=== PATIENT | male | born 1960 | race Caucasian/White ===

== ENCOUNTER 2016-07-23 09:54 | Day surgery (SDC) | payer OTHER ==
[2016-07-18 12:51] VITALS: BMI 42.4
[~2016-07-23 09:54] MED LIST: LACTATED RINGERS 1,000 ML IV SCH; LIDOCAINE 1% 20 ML VIAL (10MG/ML) FOR IV START INTRADERMA PRN
[2016-07-23 10:16] VITALS: TEMP 98.1
[2016-07-23] MEDS ORDERED: MIDAZOLAM 2 MG/2 ML VIAL ONE (10:55)
[2016-07-23] MEDS ORDERED: PROPOFOL 10 MG/ML 20 ML VIAL IV ONE (10:55)
--- NOTE | 2016-07-23 11:27 | P.PCN ---
Date of Procedure: 07/23/16 Procedure(s) Performed: Procedure: Total colonoscopy and polypectomy. Preoperative diagnosis: 1. Sigmoid polyp snared but no large polyps or cancer. 2. Mild sigmoid diverticulosis with no evidence of acute diverticulitis or strictures. Preparation: HalfLytely prep. Sedation: Was provided by anesthesia. Brief clinical history: The patient is a 55-year-old male who is referred for this evaluation for screening for neoplasia age being his risk factor. He has no abdominal complaints, bleeding or anemia. No family history of colon cancer. This would be his first colonoscopy. Procedure: With the patient on his left lateral decubitus position and after informed consent and adequate sedation, the perianal area was inspected and it did not show any fissures or fistulas. There were no masses felt on digital rectal examination. The Olympus CFQ 160L video colonoscope was then inserted in the rectum in the usual fashion and advanced to the cecum. There was a small polyp in the sigmoid around 50 cm from the anal verge which was snared and retrieved by suction. There was occasional small diverticular orifices scattered in the sigmoid with no evidence of acute diverticulitis or strictures. The exam to the cecum, otherwise, was within normal limits. I retroflexed endoscope in the rectum before the endoscope was withdrawn. The patient tolerated the procedure well. Plan: The patient was reassured. Discussed dietary measures. He will follow up with you as planned and I recommended repeat exam in 5 years.
[2016-07-23 11:36] VITALS: RESP 16
[2016-07-23 11:48] VITALS: BP 118/72; PULSE 58
== END 2016-07-23 11:56 | disposition home or self-care (01) ==
LOC: ORWHC2ENDO 09:54
DX: Z12.11 Encounter for screening for malignant neoplasm of colon (principal); D12.5 Benign neoplasm of sigmoid colon; K57.30 Diverticulosis of large intestine without perforation or abscess without bleeding; F17.200 Nicotine dependence, unspecified, uncomplicated; M19.90 Unspecified osteoarthritis, unspecified site
CPT/HCPCS: 88305; 45385; J2250; J2704

== ENCOUNTER → 2016-07-30 | Outpatient (CLI) | payer OTHER ==
--- NOTE | 2016-07-30 12:13 | ECHOS ---
DATE OF SERVICE: 07/30/2016 AGE: 55Y SEX: M HT: 67" WT: 275 lbs. Protocol Denny: X Others: Stress Echo Stage: 3 Dur. of Exercise: 7:00 *Heart Rate Blood Pressure *Rest: 67 Rest: 124/59 * *Max. Achieved: 142 Maximum BP: 198/64 85% PMHR: 140 100% PMHR: 165 *METS: 8.3 INDICATIONS: Family history of heart disease. MEDICATIONS: Aleve, aspirin, fish oil. Baseline EKG shows sinus rhythm, normal axis, normal intervals. Patient exercised on Denny protocol for a total of 7 minutes, achieving 8 METs, 86% of predicted maximal heart rate without chest pain. At peak exercise, there was 0.[address] segment depression noted. CONCLUSION: 1. Average exercise tolerance. 2. Nondiagnostic EKG changes with exercise.
== END | disposition home or self-care (01) ==
LOC: RADNMMAIN 09:45
PROVIDERS: ATTEND Family Medicine
DX: Z82.41 Family history of sudden cardiac death (principal); E66.9 Obesity, unspecified; Z87.891 Personal history of nicotine dependence; Z79.82 Long term (current) use of aspirin
CPT/HCPCS: 93350; 93017; Q9957

== ENCOUNTER → 2020-08-25 | Outpatient (CLI) | payer OTHER ==
[2020-08-25 16:07] LABS: HCT 47.9 % (39.0-53.0); HGB 16.1 gm/dL (13.0-17.5); MCH 31.8 pg (25.0-35.0); MCHC 33.7 g/dL (31.0-37.0); MCV 94.5 fL (80.0-100.0); Mean Platelet Volume 6.8; Platelet Count 286 k/uL (150-450); RBC 5.07 m/uL (4.30-5.90); RDW 12.7 % (11.5-15.5)
[2020-08-25 16:16] LABS: Albumin 4.5 g/dL (3.5-5.0); Calcium 10.5 mg/dL (8.4-10.2); Potassium 4.8 mmol/L (3.5-5.1); Total Bilirubin 0.4 mg/dL (0.2-1.3); Total Protein 7.7 g/dL (6.3-8.2)
[2020-08-25 16:20] LABS: INR 0.9 (<1.2); Partial Thromboplastin Time 23.1 sec (22.0-30.0); Prothrombin Time 9.7 sec (9.0-12.0)
[2020-08-25 19:52] LABS: Appearance,Urine Clear (Clear); Bilirubin,Urine Negative (Negative); Blood,Urine Negative (Negative); Color,Urine Yellow; Glucose,Urine (UA) Negative (Negative); Ketones,Urine Negative (Negative); Leukocyte Esterase,Urine Negative (Negative); Mucus,Urine Rare /hpf; Nitrite,Urine Negative (Negative); PH, Urine 5.5 (5.0-8.0); Protein,Urine 1+ (Negative); RBC,Urine <1 /hpf (0-5); Specific Gravity,Urine 1.025 (1.001-1.035); Urobilinogen,Urine <2.0 mg/dL (<2.0); WBC,Urine 1 /hpf (0-5)
== END | disposition home or self-care (01) ==
LOC: LABPAT 15:25
PROVIDERS: ATTEND Orthopaedic Surgery Sports Medicine
DX: Z01.812 Encounter for preprocedural laboratory examination (principal)
CPT/HCPCS: 36415; 80053; 81001; 85027; 85610; 85730; 87070; 93005

== ENCOUNTER 2020-09-08 07:43 | Day surgery (SDC) | payer OTHER ==
[2020-09-05 15:29] VITALS: BMI 40.1
[~2020-09-08 07:43] MED LIST changes: +ACETAMINOPHEN TAB 500 MG TAB PO PRN; +DEXAMETHASONE SOD PHOSPHATE 4 MG/ML 1 ML VIAL IV ONE; +GABAPENTIN 300 MG CAP PO PRN; +HYDROmorphone 0.5 MG/0.5 ML SYRINGE IVP PRN; -LACTATED RINGERS 1,000 ML IV SCH; -LIDOCAINE 1% 20 ML VIAL (10MG/ML) FOR IV START INTRADERMA PRN; +MELOXICAM 7.5 MG TAB PO PRN; +MIDAZOLAM 2 MG/2 ML VIAL IV PRN; +ONDANSETRON 4 MG/2 ML VIAL IVP ONE; +ONDANSETRON 4 MG/2 ML VIAL IVP PRN; +ROPIVACAINE/EPI/CLONIDINE/KET 50 ML SYRINGE MISCELLANE PRN; +TRANEXAMIC ACID 1,000 MG in SODIUM CHLORIDE 0.9% 100 ML IVPB PRN
[2020-09-08] MEDS: LACTATED RINGERS 1,000 ML IV SCH ×3 (08:20→19:12)
[2020-09-08] MEDS ORDERED: LIDOCAINE 1% (10MG/ML) FOR IV START INTRADERMA ONE (08:20)
[2020-09-08] MEDS ORDERED: bisacodyL 10 MG SUPP RECTAL PRN (09:02)
[2020-09-08] MEDS ORDERED: HYDROcodone/APAP 10-325MG 1 EACH TAB PO PRN (09:02)
[2020-09-08] MEDS ORDERED: hydrOXYzine pamoate 25 MG CAP PO PRN (09:02)
[2020-09-08] MEDS ORDERED: HYDROmorphone 1 MG/ML 1 ML SYRINGE IVP PRN (09:02)
[2020-09-08] MEDS ORDERED: MAGNESIUM HYDROXIDE 2,400 MG/10 ML CUP PO PRN (09:02)
[2020-09-08] MEDS ORDERED: ONDANSETRON 4 MG/2 ML VIAL IVP PRN (09:02)
[2020-09-08] MEDS ORDERED: HYDROcodone/APAP 5-325MG 1 EACH TAB PO PRN (09:02)
[2020-09-08] MEDS ORDERED: ACETAMINOPHEN TAB 325 MG TAB PO PRN (09:02)
[2020-09-08] MEDS ORDERED: diazePAM 5 MG TAB PO PRN (09:02)
[2020-09-08] MEDS ORDERED: TEMAZEPAM 15 MG CAP PO PRN (09:02)
[2020-09-08] MEDS ORDERED: HYDROmorphone 0.5 MG/0.5 ML SYRINGE IVP PRN (09:02)
[2020-09-08] MEDS ORDERED: NA PHOS,M-B/NA PHOS,DI-BA 133 ML ENEMA RECTAL PRN (09:02)
[2020-09-08] MEDS ORDERED: HYDROmorphone 0.2 MG/1 ML SYRINGE IVP PRN (09:02)
[2020-09-08] MEDS ORDERED: NALOXONE 0.4 MG/ML 1 ML VIAL IV PRN (09:02)
[2020-09-08] MEDS ORDERED: traMADol 50 MG TAB PO PRN (09:02)
[2020-09-08] MEDS ORDERED: ROPIVACAINE 0.2%-NS ON-Q PUMP 1,090 MG, EMPTY PAIN BALL 1 EACH MISCELLANE PRN (09:15)
[2020-09-08] MEDS ORDERED: SODIUM CHLORIDE 0.9% 100 ML BAG ONE (09:16)
[2020-09-08] MEDS ORDERED: fentaNYL (PF) 50 MCG/ML 2 ML AMP ONE (09:16)
[2020-09-08] MEDS ORDERED: diphenhydrAMINE 50 MG/ML 1 ML VIAL ONE (09:16)
[2020-09-08] MEDS ORDERED: TRANEXAMIC ACID 1,000 MG/10 ML VIAL ONE (09:16)
[2020-09-08] MEDS ORDERED: MIDAZOLAM 2 MG/2 ML VIAL ONE (09:16)
[2020-09-08] MEDS ORDERED: PROPOFOL 10 MG/ML 20 ML VIAL IV ONE (09:16)
[2020-09-08] MEDS ORDERED: KETAMINE 10 MG/ML 20 ML VIAL ONE (09:16)
[2020-09-08] MEDS ORDERED: ROPIVACAINE 5 MG/ML 30 ML VIAL ONE (09:16)
--- NOTE | 2020-09-08 09:16 | P.ANPRN ---
Procedure Note - Anesthesia - Nerve Block Performed Right Adductor Canal Infusion Time Out Performed: Yes Date of Procedure: 09/08/20 Procedure Start Time: 08:32 Procedure Stop Time: 08:41 Location of Patient: PreOp Indication: Acute Post-Operative Pain, Requested by Surgeon Sedation Type: Sedate with meaningful contact maintained Preparation: Sterile Prep, Sterile Dressing Position: Supine Catheter: Indwelling Needle Types: Pajunk Needle Gauge: 21 Ultrasound used to visualize needle placement: Yes Ultrasound used to observe medication spread: Yes Blood Aspirated: No Pain Paresthesia on Injection Noted: No Resistance on Injection: Normal Image Stored and Saved: Yes Events: Uneventful and Well Tolerated (ropi .5% 20cc plus dexamethasone 4mg)
--- NOTE | 2020-09-08 09:18 | P.ANPRN ---
Procedure Note - Anesthesia - Nerve Block Performed Right Tommyck Single Time Out Performed: Yes Date of Procedure: 09/08/20 Procedure Start Time: 08:48 Procedure Stop Time: 08:57 Location of Patient: PreOp Indication: Acute Post-Operative Pain, Requested by Surgeon Sedation Type: Sedate with meaningful contact maintained Preparation: Sterile Prep Position: Supine Needle Types: Pajunk Needle Gauge: 21 Ultrasound used to visualize needle placement: Yes Ultrasound used to observe medication spread: Yes Blood Aspirated: No Pain Paresthesia on Injection Noted: No Resistance on Injection: Normal Image Stored and Saved: Yes Events: Uneventful and Well Tolerated (ropi .5% 20cc)
[2020-09-08] MEDS ORDERED: ceFAZolin 3,000 MG in SODIUM CHLORIDE 0.9% IRRIGATIO 3,000 ML IRRIGATION ONE (09:49)
[2020-09-08] MEDS ORDERED: LACTATED RINGERS 1,000 ML IV ONE (11:00)
--- NOTE | 2020-09-08 12:15 | XR ---
Limited right knee HISTORY: Status post right knee arthroplasty 2 views of the right knee Patient is status post right knee arthroplasty. There is anatomic alignment. Lucency is present in th e soft tissues. Small ossific densities are present posterior to the knee which may be related to syn ovial osteochondromatosis, soft tissue calcifications may be related to venous stasis disease. There are overlying artifacts. IMPRESSION: Orthopedic follow-up.
[2020-09-08 12:30] VITALS: RESP 16
[2020-09-08] MEDS ORDERED: ALPRAZolam 0.25 MG TAB PO PRN (18:35)
--- NOTE | 2020-09-08 18:59 | OP ---
OPERATIVE REPORT DATE OF PROCEDURE: 09/08/2020. SURGEON: Bg Bhakta MD. LENS GRINDER AND POLISHER: Rony BARROSO. PREOPERATIVE DIAGNOSIS: Right knee osteoarthrosis. POSTOPERATIVE DIAGNOSIS: Right knee osteoarthrosis. OPERATION PERFORMED: Right total knee arthroplasty. ANESTHESIA: Spinal with sedation. ESTIMATED BLOOD LOSS: 100 mL. TOURNIQUET: Tourniquet time was 62 minutes at 250 mmHg. COMPLICATIONS: None apparent. DRAINS: None. DISPOSITION: Postanesthesia care unit. INDICATIONS: Clay Ordonez is a 59-year-old male with longstanding history of right knee pain. History and physical examination are consistent with advanced right knee osteoarthrosis. He has been through significant nonoperative management up to this point. Further treatment options were discussed and he has decided to go forward with a right total knee arthroplasty. The risks of procedure were discussed with him in detail. These risks include, but are not limited to risk of infection, nerve damage, bleeding, pain, and a small risk of deep vein thrombosis which could lead to fatal pulmonary embolism. There is also risk of loosening of the implant which could require revision operation. The patient understands these risks. All the questions were answered to his satisfaction. Appropriate informed consent was obtained. DESCRIPTION OF PROCEDURE: The patient identified in the preoperative holding area. Surgical sites marked by both the patient and myself. He was given 2 grams of Ancef IV for prophylactic purposes. He was then transferred to the operative suite. He was placed supine on the operative table. Spinal anesthetic was then administered and dosed per the anesthesia without apparent complication. Examination under anesthesia was then performed. The patient was 5-7 degrees shy of full extension. He had 95 degrees of flexion. The medial collateral ligament, lateral collateral ligament and posterior cruciate ligaments were stable. Tourniquet was then placed high on the right upper thigh well-padded in preparation for surgery. The patient's right lower extremity was then prepped and draped in usual sterile fashion. Standard surgical pause undertaken to ensure that we were operating on the correct site and that appropriate preoperative antibiotics were given. All staff in the room were in agreement. We proceeded. The outlines of the patella were marked with a surgical pen. A planned 12 cm vertical incision centered over the patella and was marked with a surgical pen. Leg was then exsanguinated with an Esmarch dressing. The knee was then flexed and tourniquet was inflated to 250 mm mmHg. The total tourniquet time for the procedure was 62 minutes. Incision was then made with a 10 blade scalpel. Dissection was carried down sharply overlying fascia. Great care was taken to minimize the skin flaps. The knee was then exposed using a standard medial parapatellar approach. A small cuff of quadriceps tendon was then left for suturing. He was in quite a bit of varus preoperatively. A standard medial release was then made. The superficial medial collateral ligament was dissected off the bone around the posterior aspect of the proximal tibia. The medial meniscus was then excised as well. The lateral meniscus was also released anteriorly. The leg was then externally rotated. The patella was everted. The knee was flexed. The retractors were then placed to protect the collateral ligaments. I then proceeded to remove the infrapatellar fat pad. This was excised sharply tangentially with the fibers of the patellar tendon. I then proceeded to remove the peripheral osteophytes. This was done with a rongeur. I then proceeded with the distal femoral resection. He did have a flexion contracture. Planned 11 mm resection was then done. The femoral canal was then entered. The mid line of the femur approximately 10 mm anterior to the origin of the posterior cruciate ligament. The oliverio was then advanced down the center of the femur and placed intramedullary. Based on the preoperative radiographs, the angle between the anatomic and mechanical axis of the femur was approximately 4-5 degrees. The valgus angle of the distal femoral cutting guide was then set at 4 degrees for the right knee. The distal femoral cutting guide was then set, was advanced over the intramedullary oliverio. This was seated firmly against the femur. Then as mentioned planned to take 11 mm off the distal femur. The cutting block was then secured onto the femur with pins. The jig was then removed. The distal femoral cut was made through the slot of the block. The pins were then removed. The distal femoral cutting block was removed. The accuracy of the distal femoral cuts was checked with 2 flat bars. I then proceeded with femoral sizing. The posterior referencing sizing guide was held firmly against the resected distal surface of the femur. The posterior condyles were resting on the posterior plane of the guide. Sizing guide was then placed on the anterior femur. The size was measured as a size 10. I then assessed for femoral rotation. Plan was for 3 degrees external rotation. Three degrees external rotation was placed onto the jig. These holes were then marked. I then confirmed the rotation by 3 separate methods. This was done using epicondylar axis as well as Whitesides line and posterior referencing. It was deemed that the external rotation was proper. I then went forward placing the femoral cutting block. This was placed over the previously placed pin holes. The Brent wing was then placed on the anterior slots to ensure that we would not notch the anterior femur with the anterior femoral cut. I then proceeded with the anterior femoral cut. This was flush with the anterior cortex of the femur. The posterior cuts were then made followed by the anterior chamfer cut, then the posterior chamfer cut. The cutting block was then removed for throughout the resection the collateral ligaments were protected with retractors. I then placed a trial size 10 femur. It fit very nice medial-lateral and fit flush with the distal end of the femur. The drill holes were then made. I then proceeded with the tibial cut. I planned for cruciate retaining knee. The guide was placed and set for varus valgus and for slope. The height was set for approximate 2 mm resection from the medial tibial plateau which was the lower side. I was happy with the alignment and amount of resection. The cutting block was then pinned to the proximal tibia. The alignment oliverio was removed. The proximal tibia was resected with a reciprocating saw. Again, this was done with retractors protecting the collateral ligaments as well as the posterior cruciate ligament. I then proceeded to evaluate the flexion extension gaps. A 10 mm block was then placed. The flexion and extension gaps were equal. I then proceeded with resection of posterior osteophytes. He had very extensive posterior osteophytes as well as posterior loose bodies. This was done with a curved osteotome. This resected the posterior osteophytes and posterior capsule stripping was done off the posterior aspect of the femur at this time. The osteophytes were then removed. I then proceeded with resection of the patella. The thickness of the patella was measured using the caliper. The thickness was 26 mm. The thickness of the anticipated patellar dome was taken into account. Resection was then performed and confirmed to be equal in 4 quadrants using a caliper. Approximately 14 mm of bone remained after resection. A 32 x 8.5 mm standard patellar trial was then placed. The holes drilled. The trial was then placed. I then proceeded with sizing tibial plate. A size F tibial plate fit very nicely. I then placed the trial femur, the tibial tray and patellar button. A 10 mm trial tibial insert was also placed. The components fit very nicely. He had full extension and flexion. The extension and flexion gaps were equal and stable to both varus and valgus stress. The patella tracked appropriately. The tibial tray rotation was then marked with a Bovie. This was externally rotated properly. I then proceeded with tibial preparation. First we drilled the femoral holes, removed femoral component. The tibial tray was then set for proper external rotation as well as mediolateral placement onto the tibia. It was then pinned into place. I then proceeded with punching the keel. I then decided to proceed with cementing of all of our components. The knee was thoroughly irrigated with sterile saline solution via pulse lavage. The lateral geniculate artery was identified and cauterized. All blood was removed from the bone of the tibia, femur and patella with pulse lavage. I then proceed with cementing. Two packs of antibiotic bone cement prepared on the back table by the surgical elastic knitter. I then proceeded with cementing the tibia first. The cement was impacted into the keel as well as deeply seated in the bone. A second coat of cement was then placed. The tibia was then impacted into place. Excess cement was removed with [place]'s and Joker's. I then proceeded with cementing the femoral component. The femoral component was also cemented using sterile technique. Excess cement was removed. A 10 mm trial insert was then placed into the knee. It was brought in full extension with a constant axial load placed until the cement had hardened. The patellar component was then cemented. This was held firmly with a compressive device until the cement had dried. When the cement had dried, the knee was taken out of extension. All excess cement was removed from around the prosthesis. I then trialed the knee with a 10 mm insert. The flexion and extension gaps were appropriate. The knee was stable. It came in full extension. I decided to go forward with a 10 mm cross-linked cruciate-retaining tibial insert. Polyethylene was then placed on the tibial tray and locked into place. The knee was then reduced. The knee was again further irrigated with sterile saline solution with antibiotic added. The tourniquet was then deflated. Total tourniquet time for the procedure was 62 minutes at 250 mmHg. Final components were Edmond Persona size 10 cruciate-retaining femoral component, size F tibial tray, a 10 mm medial congruent cruciate-retaining polyethylene insert and a 32 x 8.5 mm patella. I then proceeded with closure. Again, the knee was thoroughly irrigated. The quadriceps tendon and the medial retinaculum were reapproximated with #2 Ethibond suture. The extensor mechanism was then closed with a running #2 Quill suture. Subcutaneous tissues were closed with 2-0 Vicryl interrupted suture. The skin was closed with a running 3-0 Quill suture. Dermabond was applied to the incision. Sterile compressive dressings were applied. All sponge and needle counts were deemed correct prior to closure. The patient tolerated the procedure without apparent complication. He was transferred to the recovery room in stable condition. MMODL / IJN: [id number] /
[2020-09-08] MEDS: ASPIRIN 81 MG PO SCH (20:58)
[2020-09-08] MEDS ORDERED: SENNOSIDES-DOCUSATE SODIUM 1 EACH TAB PO SCH (21:00)
--- NOTE | 2020-09-08 22:12 | CONS ---
CONSULTATION REASON FOR CONSULTATION: Advice regarding history of DJD and other medical issues, requested by Dr. Bhakta. HISTORY OF PRESENT ILLNESS: This 59-year-old gentleman with past medical history of DJD, history of adenoidectomy, appendectomy, history of tonsillectomy, being followed Dr. Alexi George in the outpatient setting, underwent right total knee arthroplasty by Dr. Bhakta. There is no history of any fever, rigor or chills. No history of headache, loss of consciousness, seizures at this time. PAST MEDICAL HISTORY: History of DJD, history of adenoidectomy, appendectomy, tonsillectomy. HOME MEDICATIONS: 1. CBD. 2. Multivitamins. 3. Aspirin 81 mg daily. ALLERGIES: NONE. FAMILY HISTORY: No history of heart disease or strokes in the family. SOCIAL HISTORY: History of smoking. Occasional alcohol intake. REVIEW OF SYSTEMS: ENT: No diminished hearing. No diminished vision. CARDIOVASCULAR SYSTEM: No angina, palpitations. RESPIRATORY SYSTEM: No cough, hemoptysis. GI: No nausea, vomiting. : No dysuria or retention. NERVOUS SYSTEM: No numbness, weakness. ALLERGY/IMMUNOLOGY: No asthma, hayfever. MUSCULOSKELETAL: As mentioned earlier. HEMATOLOGY/ONCOLOGY: No history of anemia. ENDOCRINE: No history of diabetes, hypothyroidism. CONSTITUTIONAL: As mentioned earlier. DERMATOLOGY: Negative. RHEUMATOLOGY: Negative. PSYCHIATRY: As mentioned earlier. PHYSICAL EXAMINATION: Patient alert and oriented x3. Pulse 55, blood pressure 148/92, respirations 16, temperature 97.7, pulse ox 96% on room air. HEENT: Conjunctivae normal. NECK: No jugular venous distention. CARDIOVASCULAR SYSTEM: S1, S2 muffled. RESPIRATORY SYSTEM: Breath sounds diminished at the bases. No rhonchi. No crackles. ABDOMEN: Soft, non-tender. NERVOUS SYSTEM: No focal deficit. LEGS: Status post knee arthroplasty. NERVOUS SYSTEM: Higher functions as mentioned earlier. Moves all 4 limbs. No focal motor or sensory deficit. LYMPHATICS: No lymph node palpable in neck, axillae or groin. SKIN: No ulcer, rash, bleeding. JOINTS: As mentioned earlier. LABS: COVID-19 is negative. On the previous labs, WBC was 11. Otherwise, coags are normal. Chemistry also shows within normal limits. Random sugar was apparently 101. ASSESSMENT: 1. Status post right total knee joint arthroplasty. 2. Degenerative joint disease. 3. History of nicotine dependence. 4. Appendectomy. 5. Tonsillectomy. 6. Obesity with body mass index of 40.2. 7. FULL CODE. RECOMMENDATIONS AND DISCUSSION: In this 59-year-old gentleman who presented with multiple medical issues, we will monitor the patient closely, continue the current medications, continue symptomatic treatment. DVT prophylaxis. Otherwise, I would recommend Habitrol, smoking cessation. Closely follow with Dr. George after discharge. We will follow the patient closely with you. Thank you, Dr. Bhakta, for letting us participate in the care of this patient. MMODL / IJN: [id number] /
[2020-09-09] MEDS: NICOTINE 14MG/24HR PATCH TRANSDERM SCH ×2 (04:45→08:18)
[2020-09-09] MEDS: LACTATED RINGERS 1,000 ML IV SCH (05:12)
[2020-09-09 05:53] LABS: Basophils % (A) 0 %; Eosinophils % (A) 0 %; HCT 41.9 % (39.0-53.0); HGB 14.4 gm/dL (13.0-17.5); Lymphocytes # (A) 1.9 k/uL (1.0-4.8); Lymphocytes % (A) 13 %; MCH 32.5 pg (25.0-35.0); MCHC 34.3 g/dL (31.0-37.0); MCV 94.6 fL (80.0-100.0); Mean Platelet Volume 6.9; Monocytes % (A) 7 %; Neutrophils # (A) 12.1 k/uL (1.3-7.7); Neutrophils % (A) 80 %; Platelet Count 293 k/uL (150-450); RBC 4.43 m/uL (4.30-5.90); RDW 12.5 % (11.5-15.5); WBC 15.2 k/uL (3.8-10.6)
[2020-09-09 07:12] VITALS: BP 166/94; PULSE 65; TEMP 98.6
--- NOTE | 2020-09-09 07:46 | P.PN ---
Progress Note - Text 09/09/20 718am 59-year-old male status post total knee replacement by Dr. Bhakta. Hasn't On-Q pump for postop pain control with the solution running at 8 mL an hour with a VAS of 3 at rest dressing clean dry and intact. Plan to continue On-Q pump infusion
[2020-09-09] MEDS: ASPIRIN 81 MG PO SCH (08:21)
[2020-09-09] MEDS ORDERED: ASPIRIN 81 MG PO SCH (09:00)
[2020-09-09] MEDS ORDERED: amLODIPine 5 MG TAB PO SCH (11:00)
[2020-09-09] MEDS ORDERED: MULTIVITAMINS, THERA 1 EACH TAB PO SCH (12:00)
--- NOTE | 2020-09-09 14:50 | P.DS ---
Providers Expected date of discharge: 09/09/20 Attending physician: Bg Bhakta Consults: 09/08/20 09:02 Consult Physician Routine Consulting Provider: Yajaira Saravia Consult Reason/Comments: post op medical management Do you want consulting provider notified?: Yes Primary care physician: Alexi George - Discharge Diagnosis(es) (1) Osteoarthritis of right knee Patient was admitted to the OR on 09/08/20 to undergo a right total knee arthroplasty. He had failed conservative measures as an outpatient and desired to proceed with elective surgery after given informed consent. He underwent the above procedure which she tolerated well without complication. Postoperative hospital course has remained without complication. On day of discharge she is afebrile, vital signs stable, labs within acceptable ranges, tolerating by mouth meds and diet, voiding without difficulty, positive flatus, denies abdominal pain or calf pain, pain is controlled on oral pain medication and has no new complaints. Wound is benign, neurovascular status is intact, calf is soft and nontender, abdomen soft and nontender. Review of systems is negative for numbness, tingling, fever, chills, chest pain, shortness of breath, nausea, vomiting, dizziness, headaches, slurred speech or other. Status: Acute Priority: Medium Procedures: Right TKA Patient Condition at Discharge: Good Plan - Discharge Summary Discharge Rx Participant: No New Discharge Prescriptions: New Aspirin [Adult Low Dose Aspirin EC] 81 mg PO BID #60 tablet. HYDROcodone/APAP 7.5-325MG [Flint 7.5-325] 1 - 2 each PO Q6HR PRN #42 tab PRN Reason: Pain Nicotine 14Mg/24Hr Patch [Habitrol] 1 patch TRANSDERM DAILY #20 patch amLODIPine [Norvasc] 5 mg PO DAILY 30 Days #30 tab Acetaminophen Tab [Tylenol] 650 mg PO Q4HR PRN tab PRN Reason: Pain Scale 1 To 5 Docusate [Colace] 100 mg PO BID #60 capsule Continue Aspirin [Adult Low Dose Aspirin EC] 81 mg PO DAILY Multivitamins, Thera [Multivitamin (formulary)] 1 tab PO DAILY Cannabidiol (Cbd) [Epidiolex] 0 mg TOPICAL DAILY PRN PRN Reason: Pain Discharge Medication List Aspirin [Adult Low Dose Aspirin EC] 81 mg PO DAILY 07/18/16 [History] Multivitamins, Thera [Multivitamin (formulary)] 1 tab PO DAILY 07/18/16 [History] Cannabidiol (Cbd) [Epidiolex] 0 mg TOPICAL DAILY PRN 09/05/20 [History] Acetaminophen Tab [Tylenol] 650 mg PO Q4HR PRN tab 09/09/20 [Rx] Aspirin [Adult Low Dose Aspirin EC] 81 mg PO BID #60 tablet. 09/09/20 [Rx] Docusate [Colace] 100 mg PO BID #60 capsule 09/09/20 [Rx] HYDROcodone/APAP 7.5-325MG [Flint 7.5-325] 1 - 2 each PO Q6HR PRN #42 tab 09/09/20 [Rx] Nicotine 14Mg/24Hr Patch [Habitrol] 1 patch TRANSDERM DAILY #20 patch 09/09/20 [Rx] amLODIPine [Norvasc] 5 mg PO DAILY 30 Days #30 tab 09/09/20 [Rx] Follow up Appointment(s)/Referral(s): [facility], [NON-STAFF] - 1 Week Bg Bhakta MD [STAFF PHYSICIAN] - 10 Days Patient Instructions/Handouts: *Surgery [facility] - On-Q Pain Pump Discharge Instructions, Knee Replacement (GEN) Activity/Diet/Wound Care/Special Instructions: Keep wound clean and dry Take meds as directed Follow-up with Dr. Bhakta in office Weight bear as tolerated May shower in 3 days if no bleeding Continue with Norvasc 5 mg daily and follow-up with primary care provider upon discharge Continue to monitor blood pressure and keep a diary for primary care follow-up Discharge Disposition: HOME WITH HOME HEALTH SERVICES
--- NOTE | 2020-09-09 20:55 | PN ---
PROGRESS NOTE DATE OF SERVICE: 09/09/2020 This 59-year-old gentleman admitted after right total knee arthroplasty is improving significantly. No chest pain. No palpitations. No fever. PHYSICAL EXAMINATION: Alert and oriented x3. Pulse is 65, blood pressure 160/94, respirations 16, temperature 98.6, pulse ox 97% on room air. HEENT: Conjunctivae normal. NECK: No jugular venous distention. CARDIOVASCULAR SYSTEM: S1, S2 muffled. RESPIRATORY SYSTEM: Breath sounds diminished at the bases. ABDOMEN: Soft, non-tender. LEGS: Status post knee arthroplasty. NERVOUS SYSTEM: No focal deficit. LABS: WBC 15.2. Other labs are noted. ASSESSMENT: 1. Status post right total knee arthroplasty. 2. Hypertension. 3. Degenerative joint disease. 4. History of nicotine dependence. 5. Appendectomy. 6. Tonsillectomy. 7. Obesity body mass index of 40.9. 8. FULL CODE. RECOMMENDATIONS AND DISCUSSION: I recommend to continue current medications, continue with the monitoring, symptomatic treatment. I recommend Norvasc 5 mg p.o. daily and close followup with primary physician in the outpatient setting regarding the blood pressure. Otherwise, rest of the recommendations per Orthopedic Surgery. Further recommendations to follow. MMODL / IJN: [id number] /
== END 2020-09-09 12:20 | disposition home health service (06) ==
LOC: OR 07:43 → 5NMEDONC 13:24 → OR 09-09 12:20
PROVIDERS: ATTEND Orthopaedic Surgery Sports Medicine
DX: M17.0 Bilateral primary osteoarthritis of knee (principal); H91.90 Unspecified hearing loss, unspecified ear; Z97.3 Presence of spectacles and contact lenses; Z90.89 Acquired absence of other organs; Z79.82 Long term (current) use of aspirin; F17.210 Nicotine dependence, cigarettes, uncomplicated
CPT/HCPCS: 27447; 97110; 97161; 64999; 64448; 76942; 85025; 88300; 87635; 73560; C1776; C1713; J2250; J1200; J1100; J0690 ×2; J2405; J3010; J2795 ×2; J2704

== ENCOUNTER → 2021-09-27 | Outpatient (CLI) | payer BC ==
--- NOTE | 2021-09-27 12:09 | CA ---
Exercise Stress Test Report Name: Clay Ordonez Exam Date: 09/27/2021 09:02 Exam Location: [facility] Stress Ht (in): 68 Wt (lb): 274 BSA: 2.34 Ordering Phys: Alexi George MD Referring Phys: ROBERT, Technologist: Kiley Nj Age: 60 Gender: M : 1960 Procedure CPT: Indications: R94.31 ABNORMAL EKG ICD-10 Codes: Patient History: ABNORMAL EKG Medications: ASPIRIN Meds past 24 hrs: Pretest Chest Pain: STRESS TEST Denny Protocol Exercise Duration (min:sec): 09:[address] Depressions (mm): Angina Score: Sifuentes Score: Resting HR (bpm): 65 Peak HR (bpm): 149 Resting BP (mmHg): 146 / 72 Peak BP (mmHg): 211 / 73 MPHR: 160 Target HR: 136 % MPHR: 93 METS: 10.3 Total Dose: Peak Dose: Atropine: Double Product: 81296 BP Response: Stress Termination: TARGET HR REACHED/MAX EXERTION Stress Symptoms: DIFFICULTY IN BREATHING Stress Summary: ECG ANALYSIS Resting ECG: Normal sinus rhythm normal axis normal intervals Stress ECG: No significant ST segment depression CONCLUSIONS Good exercise tolerance Negative stress test by EKG criteria Dr. Champ Gramajo MD (Electronically Signed) Final Date: 27 Sep 2021 12:08
== END | disposition home or self-care (01) ==
LOC: RADNMMAIN 08:30
PROVIDERS: ATTEND Pediatrics
DX: R94.31 Abnormal electrocardiogram [ECG] [EKG] (principal)
CPT/HCPCS: 93017

== ENCOUNTER 2022-12-14 10:45 | Day surgery (SDC) | payer BC ==
[2022-12-10 15:43] VITALS: BMI 38.0
--- NOTE | 2022-12-13 20:34 | HP ---
HISTORY AND PHYSICAL CHIEF COMPLAINT: Fluid in the right ear. HISTORY OF PRESENT ILLNESS: The patient is a 62-year-old male who was recently seen in my office with complaints of plugged sensation in the right ear. The patient stated that when he talked it sounded as if he has his head stuck in a bucket. Clinical examination at the time the patient was seen in my office revealed chronic right serous otitis media so called glue ear. The patient was tried on a course of oral dexamethasone for 10 days. He returned approximately 2 weeks later and stated that it was not any better. Clinical examination here reveals he still had chronic right serous otitis media, so called glue ear. It was therefore recommended that he undergo a right myringotomy with insertion of ventilation tube under IV sedation. PAST MEDICAL HISTORY: Reveals the patient has no known allergies to medications. His only current medication is a low dose blood pressure medication, he does not know the name. Previous surgeries include appendectomy, tonsillectomy and adenoidectomy, right knee replacement, and colonoscopy. REVIEW OF SYSTEMS: Review of systems is positive with respect to the cardiovascular system for hypertension. Otherwise, the review of systems is unremarkable. PHYSICAL EXAMINATION: GENERAL: The patient is a 62-year-old male who was alert and cooperative. HEENT: The patient is normocephalic. Left ear is unremarkable. Examination of right ear reveals chronic right serous otitis media. Pupils equal, round, and reactive to light and accommodation. Extraocular movements within normal limits. Intranasal examination reveals moderate to severe septal deviation with compensatory hypertrophy of the inferior turbinates and moderate amount of mucus on the mucous membranes and draining down the posterior pharynx. Cranial nerves II through XII, remainder of the head and neck exam were within normal limits. CHEST AND CARDIOVASCULAR: Lung quinones are clear. The patient in regular sinus rhythm. S1 and S2 are present without any murmurs, S3s, or S4s. Peripheral pulses are bilaterally symmetrical. ABDOMEN: There is no evidence any masses, megaly, or tenderness. The abdomen is soft. SKIN: Unremarkable. MUSCULOSKELETAL AND NEUROLOGICAL: Within normal limits. RECTAL: Deferred at this time because the patient has done on a regular basis at his family physician's office. The remainder of physical exam is unremarkable. IMPRESSION: Chronic right serous otitis media. PLAN: The patient is scheduled to undergo a right myringotomy with insertion of a ventilation tube under IV sedation with MAC. Attention RNs: I have ordered for this patient to receive 3 g of Ancef IV to be given once an intravenous line has been established. If the pharmacy department sends a different pre-surgical prophylactic antibiotic to the pre-surgical area for this patient, please cancel that order and return the medication to the pharmacy department. Make sure that the patient's account is credited appropriately. In addition to this, I have not ordered any other or any further medications for this patient. I have discussed the risks, benefits and alternative therapies for the above-mentioned procedure and for both sedation/analgesia as well as necessary blood product administration, if indicated, as they pertain to this patient. The patient has indicated his or her understanding and acceptance of the risks and procedures discussed. MMODL / IJN: [id number] /
[~2022-12-14 10:45] MED LIST changes: -ACETAMINOPHEN TAB 500 MG TAB PO PRN; -DEXAMETHASONE SOD PHOSPHATE 4 MG/ML 1 ML VIAL IV ONE; -GABAPENTIN 300 MG CAP PO PRN; -HYDROmorphone 0.5 MG/0.5 ML SYRINGE IVP PRN; -MELOXICAM 7.5 MG TAB PO PRN; -MIDAZOLAM 2 MG/2 ML VIAL IV PRN; -ONDANSETRON 4 MG/2 ML VIAL IVP ONE; -ONDANSETRON 4 MG/2 ML VIAL IVP PRN; +Pre Op ABX Message 1 EACH MISC MISCELLANE ONE; -ROPIVACAINE/EPI/CLONIDINE/KET 50 ML SYRINGE MISCELLANE PRN; -TRANEXAMIC ACID 1,000 MG in SODIUM CHLORIDE 0.9% 100 ML IVPB PRN
[2022-12-14] MEDS ORDERED: ONDANSETRON 4 MG/2 ML VIAL IVP PRN (11:07)
[2022-12-14] MEDS ORDERED: LIDOCAINE 1% (10MG/ML) FOR IV START INTRADERMA PRN (11:07)
[2022-12-14] MEDS ORDERED: HYDROmorphone 0.5 MG/0.5 ML SYRINGE IVP PRN (11:07)
[2022-12-14] MEDS ORDERED: LACTATED RINGERS 1,000 ML IV SCH (11:07)
[2022-12-14 11:11] VITALS: TEMP 97.8
[2022-12-14] MEDS ORDERED: PROPOFOL 10 MG/ML 20 ML VIAL IV ONE (12:31)
[2022-12-14] MEDS ORDERED: MIDAZOLAM 2 MG/2 ML VIAL ONE (12:31)
[2022-12-14] MEDS ORDERED: fentaNYL (PF) 50 MCG/ML 2 ML AMP ONE (12:31)
[2022-12-14] MEDS ORDERED: OFLOXACIN 0.3% OPHTH DROPS 5 ML BOTTLE RIGHT EAR ONE ×2 (12:32→13:07)
[2022-12-14] MEDS ORDERED: SODIUM CHLORIDE 0.9% 50 ML with ceFAZolin 2,000 MG IV ONE ×2 (12:34)
[2022-12-14 13:29] VITALS: RESP 18
[2022-12-14 13:53] VITALS: BP 105/59; PULSE 64
--- NOTE | 2022-12-15 03:13 | OP ---
OPERATIVE REPORT DATE OF SERVICE : 12/14/2022 PREOPERATIVE DIAGNOSIS: Chronic right serous otitis media. POSTOPERATIVE DIAGNOSIS: Chronic right serous otitis media. ANESTHESIA: IV sedation with MAC. PROCEDURE PERFORMED: Right myringotomy with insertion of a plastic Nick-Bobbin ventilation tube. COMPLICATIONS: None. ESTIMATED BLOOD LOSS: Zero. DESCRIPTION OF PROCEDURE: The patient was placed on the operating table in supine position and after adequate IV sedation, satisfactory sedation was obtained. Next, the patient's right ear was draped in usual and customary fashion. Following which, using a #3 aural speculum and the Zeiss operating microscope, the right external auditory canal was cleansed of all wax and debris. Following this, an incision was made in the anterior-inferior quadrant of the anterior inferior quadrant of the right tympanic membrane. The right middle ear space was suctioned free of all fluid. The right ear external auditory canal was filled with Ofloxacin ophthalmic solution. Next, attention was directed to the patient's left ear. Inspection of the patient's left ear reveals that it was severely impacted with cerumen. Therefore, using a Hallpike and a ring curette, the left external auditory canal was cleansed of all wax and debris. The left tympanic membrane appeared to be normal and there did not appear to be any fluid in the left middle ear space. At this point, the procedure was terminated. There were no intraoperative complications. The patient tolerated the procedure well and was returned to the recovery room in satisfactory condition. MMODL / IJN: [id number] /
== END 2022-12-14 13:55 | disposition home or self-care (01) ==
LOC: OR 10:45
PROVIDERS: ATTEND Otolaryngology
DX: H65.91 Unspecified nonsuppurative otitis media, right ear (principal); Z90.49 Acquired absence of other specified parts of digestive tract; Z90.89 Acquired absence of other organs; Z96.651 Presence of right artificial knee joint
CPT/HCPCS: 69436; J2250; J0171; J2405; J0690; J3010; J2704

== ENCOUNTER 2023-07-08 19:48 | Observation (INO) | payer BC ==
[2023-07-08 19:57] VITALS: TEMP 99.1
[2023-07-08 20:17] LABS: Basophils # (A) 0.1 k/uL (0-0.2); Basophils % (A) 1 %; Eosinophils # (A) 0.3 k/uL (0-0.7); Eosinophils % (A) 4 %; HCT 47.9 % (39.0-53.0); HGB 15.9 gm/dL (13.0-17.5); Lymphocytes % (A) 32 %; MCH 31.8 pg (25.0-35.0); MCHC 33.2 g/dL (31.0-37.0); Mean Platelet Volume 7.2; Monocytes # (A) 0.8 k/uL (0-1.0); Monocytes % (A) 8 %; Neutrophils # (A) 4.9 k/uL (1.3-7.7); Neutrophils % (A) 52 %; Platelet Count 267 k/uL (150-450); RBC 4.99 m/uL (4.30-5.90); RDW 12.9 % (11.5-15.5); WBC 9.3 k/uL (3.8-10.6)
--- NOTE | 2023-07-08 20:18 | XR ---
EXAMINATION: XR chest 2V: 07/08/2023 8:11 PM CLINICAL INDICATION: Chest Pain TECHNIQUE: Departmental protocol COMPARISON: None FINDINGS: Relatively low lung volumes at the moment of x-ray exposure. The lungs appear to be clear, given this factor. The pleural spaces are negative. The cardiac silhouette is not enlarged. The remainder of the mediastinal silhouette is unremarkable. The skeletal structures and soft tissues are negative for acute findings. IMPRESSION: No definite acute radiographic process.
[2023-07-08 20:27] LABS: ALT 27 U/L (4-49); AST 25 U/L (17-59); African American GFR (CKD) 86 (>60 ml/min/1.73 sqM); Albumin 4.1 g/dL (3.5-5.0); Alkaline Phosphatase 75 U/L (38-126); Anion Gap 7 mmol/L; Blood Urea Nitrogen 22 mg/dL (9-20); Calcium 10.2 mg/dL (8.4-10.2); Carbon Dioxide 22 mmol/L (22-30); Chloride 110 mmol/L (98-107); Glucose 102 mg/dL (74-99); Magnesium 2.1 mg/dL (1.6-2.3); Non-African American GFR(CKD) 75 (>60 ml/min/1.73 sqM); Potassium 4.2 mmol/L (3.5-5.1); Sodium 139 mmol/L (137-145); Total Bilirubin 0.4 mg/dL (0.2-1.3); Total Protein 7.1 g/dL (6.3-8.2)
[2023-07-08 20:56] LABS: INR 0.9 (<1.2); Partial Thromboplastin Time 23.4 sec (22.0-30.0); Prothrombin Time 10.3 sec (10.0-12.5)
--- NOTE | 2023-07-08 21:07 | ED ---
Chest Pain HPI - General Source: patient Mode of arrival: ambulatory Limitations: no limitations <Roscoe Guzmán - Last Filed: 07/08/23 21:07> - General Source: patient, family Mode of arrival: ambulatory Limitations: no limitations <Alvaro Diaz - Last Filed: 07/08/23 22:56> - General Chief Complaint: Chest Pain Stated Complaint: Chest Pain,Left arm pain Time Seen by Provider: 07/08/23 21:07 - History of Present Illness Initial Comments: 62-year-old male presenting with chief complaint of chest pain. This is a pain that radiates down the left arm. Started around 5 PM today. (Roscoe Guzmán) Patient is a pleasant 62-year-old male present to the emergency department with concerns for chest discomfort. Onset of symptoms was a couple of hours ago. Patient has pressure in his chest with radiation to left arm. Chest pressure has resolved. Arm discomfort remains but is somewhat mild at this time. No associated dyspnea, nausea, or diaphoresis. No history of similar symptoms previously. Patient does have strong family history of heart disease (Alvaro Diaz) - Related Data Home Medications Medication Instructions Recorded Confirmed Aspirin [Adult Low Dose Aspirin EC] 81 mg PO DAILY 07/18/16 12/14/22 Multivitamins, Thera [Multivitamin 1 tab PO DAILY 07/18/16 12/14/22 (formulary)] Acetaminophen Tab [Tylenol] 650 mg PO Q6H PRN 12/10/22 12/14/22 Naproxen Sodium [Aleve] 220 mg PO DAILY 12/10/22 12/14/22 hydroCHLOROthiazide [Hydrodiuril] 25 mg PO DAILY 12/10/22 12/14/22 Allergies Allergy/AdvReac Type Severity Reaction Status Date / Time No Known Allergies Allergy Verified 07/08/23 19:53 Review of Systems ROS Other: All systems not noted in ROS Statement are negative. <Roscoe Guzmán - Last Filed: 07/08/23 21:07> ROS Other: All systems not noted in ROS Statement are negative. Constitutional: Denies: fever Eyes: Denies: eye pain ENT: Denies: ear pain Respiratory: Denies: dyspnea Cardiovascular: Reports: as per HPI, chest pain Endocrine: Denies: fatigue Gastrointestinal: Denies: abdominal pain <Alvaro Diaz - Last Filed: 07/08/23 22:56> ROS Statement: Those systems with pertinent positive or pertinent negative responses have been documented in the HPI. EKG Findings - EKG Results: EKG: interpreted by ERMD (Inferior Q waves), sinus rhythm, normal axis, normal ST/T <Alvaro Diaz - Last Filed: 07/08/23 22:56> Past Medical History Past Medical History: Hypertension, Osteoarthritis (OA) Additional Past Medical History / Comment(s): RINGING IN RT EAR History of Any Multi-Drug Resistant Organisms: None Reported Past Surgical History: Appendectomy, Joint Replacement, Orthopedic Surgery Additional Past Surgical History / Comment(s): lt knee-torn meniscus repair. RT TKA. COLONOSCOPY Past Anesthesia/Blood Transfusion Reactions: No Reported Reaction Past Psychological History: No Psychological Hx Reported Smoking Status: Current every day smoker Past Alcohol Use History: Occasional Past Drug Use History: None Reported - Past Family History Mother Family Medical History: No Reported History <Roscoe Guzmán - Last Filed: 07/08/23 21:07> General Exam Limitations: no limitations <Roscoe Guzmán - Last Filed: 07/08/23 21:07> Limitations: no limitations General appearance: alert Head exam: Present: normocephalic Eye exam: Present: normal appearance Neck exam: Present: normal inspection Respiratory exam: Present: normal lung sounds bilaterally Cardiovascular Exam: Present: regular rate, normal rhythm, normal heart sounds Expanded Peripheral pulses: 2+: Radial (R), Radial (L), Dorsalis Pedis (R), Dorsalis Pedis (L) GI/Abdominal exam: Present: soft. Absent: tenderness Extremities exam: Present: normal inspection. Absent: pedal edema, calf tenderness Neurological exam: Present: alert Psychiatric exam: Present: normal affect, normal mood Skin exam: Present: normal color <Alvaro Diaz - Last Filed: 07/08/23 22:56> - General Exam Comments Initial Comments: Visual Physical Exam Vital signs reviewed General: Well-appearing, nontoxic, no acute distress. Head: Normocephalic, atraumatic Eyes: PERRLA, EOMI ENT: Airway patent Chest: Nonlabored breathing Skin: No visual rash, normal skin tone Neuro: Alert and oriented 3 Musculoskeletal: No gross abnormalities (Roscoe Guzmán) Course Vital Signs 07/08/23 07/08/23 19:51 22:15 Temperature 99.1 F Pulse Rate 72 74 Respiratory 18 16 Rate Blood Pressure 138/90 164/110 O2 Sat by Pulse 97 96 Oximetry Chest Pain MDM <Roscoe Guzmán - Last Filed: 07/08/23 21:07> <DiazAlvaro - Last Filed: 07/08/23 22:56> - [facility] I performed the quick note portion of this visit, electronically signed Roscoe Guzmán PA-C (Roscoe Guzmán) Was pt. sent in by a medical professional or institution (, PA, BLOWER OPERATOR, urgent care, hospital, or halfway...) When possible be specific @ -No Did you speak to anyone other than the patient for history (EMS, parent, family, police, friend...)? What history was obtained from this source @ - is present and helps provide history including strong family history Did you review nursing and triage notes (agree or disagree)? Why? @ -I reviewed and agree with nursing and triage notes Were old charts reviewed (outside hosp., previous admission, EMS record, old EKG, old radiological studies, urgent care reports/EKG's, halfway records)? Report findings @ -No old charts were reviewed Differential Diagnosis (chest pain, altered mental status, abdominal pain women, abdominal pain men, vaginal bleeding, weakness, fever, dyspnea, syncope, headache, dizziness, GI bleed, back pain, seizure, CVA, palpatations, mental health, musculoskeletal)? @ -Differential Chest Pain: Stable Angina, Unstable Angina, STEMI, NSTEMI Aortic Dissection, Pneumothorax, Musculoskeletal, Esophageal Spasm GERD, Cholecystitis, Pancreatitis, Zoster, this is not meant to be an all-inclusive list. EKG interpreted by me (3pts min.). @ -As above X-rays interpreted by me (1pt min.). @ -Chest x-ray shows no acute process CT interpreted by me (1pt min.). @ -None done U/S interpreted by me (1pt. min.). @ -None done What testing was considered but not performed or refused? (CT, X-rays, U/S, labs)? Why? @ -None What meds were considered but not given or refused? Why? @ -None Did you discuss the management of the patient with other professionals (professionals i.e. , PA, BLOWER OPERATOR, lab, RT, psych nurse, social media marketing analyst, stone layout marker, teacher, hotel security officer, caser)? Give summary @ -Case was discussed with Dr. Saravia, who will admit covering for Dr. Ross, who admits to Dr. George Was smoking cessation discussed for >3mins.? @ -No Was critical care preformed (if so, how long)? @ -No Were there social determinants of health that impacted care today? How? (Homelessness, low income, unemployed, alcoholism, drug addiction, transportation, low edu. Level, literacy, decrease access to med. care, assisted, rehab)? @ -No Was there de-escalation of care discussed even if they declined (Discuss DNR or withdrawal of care, Hospice)? DNR status @ -No What co-morbidities impacted this encounter? (DM, HTN, Smoking, COPD, CAD, Cancer, CVA, ARF, Chemo, Hep., AIDS, mental health diagnosis, sleep apnea, morbid obesity)? @ -None Was patient admitted / discharged? Hospital course, mention meds given and route, prescriptions, significant lab abnormalities, going to OR and other pertinent info. @ -Patient and family are made aware of results and plan. Patient will be admitted. Admission orders written. Undiagnosed new problem with uncertain prognosis? @ -No Drug Therapy requiring intensive monitoring for toxicity (Heparin, Nitro, Insulin, Cardizem)? @ -No Were any procedures done? @ -No Diagnosis/symptom? @ -Chest pain Acute, or Chronic, or Acute on Chronic? @ -Acute Uncomplicated (without systemic symptoms) or Complicated (systemic symptoms)? @ -Default Side effects of treatment? @ -No Exacerbation, Progression, or Severe Exacerbation? @ -No Poses a threat to life or bodily function? How? (Chest pain, [place], [place], pneumonia, PE, COPD, DKA, ARF, appy, cholecystitis, CVA, Diverticulitis, Homicidal, Suicidal, threat to staff... and all critical care pts) @ -No (Alvaro Diaz) Disposition <Roscoe Guzmán - Last Filed: 07/08/23 21:07> Is patient prescribed a controlled substance at d/c from ED?: No Time of Disposition: 22:56 <Alvaro Diaz - Last Filed: 07/08/23 22:56> Clinical Impression: Chest pain Disposition: ADMITTED IP TO THIS HOSP Referrals: Alexi George MD [Primary Care Provider] - 1-2 days
[2023-07-08] MEDS ORDERED: NITROGLYCERIN SL TABS 0.4 MG TAB SUBLINGUAL PRN (22:56)
[2023-07-08] MEDS: NITROGLYCERIN OINT 1 INCH/GM PACKET TOPICAL SCH (23:29)
[2023-07-08] MEDS: ASPIRIN 81 MG PO STA (23:30)
[2023-07-09] MEDS: hydroCHLOROthiazide 25 MG TAB PO SCH (08:26)
[2023-07-09] MEDS: ASPIRIN 81 MG PO SCH (08:26)
[2023-07-09 08:33] VITALS: BP 130/72; PULSE 65; RESP 18
[2023-07-09 08:52] LABS: Chol/HDL Ratio 3.02 Ratio; LDL Cholesterol,Calculated 104.2 mg/dL (0.0-131.0); VLDL Calculation 14.22 mg/dL (5.00-40.00)
[2023-07-09] MEDS ORDERED: ASPIRIN 325 MG TAB PO SCH (09:00)
--- NOTE | 2023-07-09 09:51 | P.CRDCN ---
History of Present Illness Consult date: 07/09/23 Consult reason: chest pain History of present illness: History of present illness: This is a 62-year-old male does not follow with a sports leadership instructor no previous cardiac history. He has a past medical history of lower extremity edema on hydrochlorothiazide and denies history of hypertension. We have been asked to evaluate the patient for chest pain. Patient states that yesterday he developed left arm pain that went to his chest. Seem to be in his hand with a sharp pain starting in the thumb index finger area. He states it started after he leaned on his hand. He denies having shortness of breath. He denies having any discomfort when he is walking. He does have chronic lower extremity edema. 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 He is a smoker recently cut back to half pack per day. He has rare alcohol intake. Patient is seen today in the emergency center waiting for a bed on the observation unit. Patient has been started on full-strength aspirin and Nitropaste. EKG sinus rhythm Chest x-ray: No acute process CBC normal. INR 0.9. Sodium 139, potassium 4.2, BUN 22 and creatinine 1.07. Troponin negative x 3. Glucose 102. Liver function test are normal. Magnesium 2.1. Triglycerides 71, cholesterol 177, LDL 104, HDL 58. Home cardiac medications: Aspirin 81 mg daily, hydrochlorothiazide 25 mg daily. Review Of Systems: At the time of my exam: CONSTITUTIONAL: Denies fever or chills. HEENT: Denies blurred vision, vision changes, or eye pain. Denies hemoptysis CARDIOVASCULAR: Denies chest pain. Denies orthopnea. Denies PND. Denies palpitations RESPIRATORY: Denies shortness of breath. GASTROINTESTINAL: Denies abdominal pain. Denies nausea or vomiting. HEMATOLOGIC: Denies bleeding disorders. GENITOURINARY: Denies any blood in urine. SKIN: Denies pruitis. Denies rash. Physical examination: Gen: This is a morbidly obese 62-year-old male in no acute distress VS: reviewed HEENT: Head is atraumatic, normocephalic. Pupils equal, round. Sclerae is anicteric. NECK: Supple. No JVD. LUNGS: Clear to auscultation. No wheezes or rhonchi. No intercostal retractions. HEART: Regular rate and rhythm. No murmur. ABDOMEN: Soft No tenderness. EXTREMITIES: No pedal edema. No calf tenderness. NEUROLOGICAL: Patient is awake, alert and oriented x3. Assessment: Atypical chest pain, acute coronary syndrome ruled out Hypertension uncontrolled Morbid obesity Tobacco use and dependence Plan: Resume patient's home cardiac medications Obtain stress echocardiogram today Obtain 2-D echocardiogram and Doppler study to assess cardiac structure and function If stress test and echocardiogram are within normal limits, patient is cleared from cardiology for discharge and may follow-up with Dr. Sam in the office in 1 to 2 weeks. Smoking cessation discussed with the patient. Thank you kindly for this consultation. Nurse practitioner note has been reviewed, I agree with documented findings and plan of care. Patient was seen and examined. Past Medical History Past Medical History: Hypertension, Osteoarthritis (OA) Additional Past Medical History / Comment(s): RINGING IN RT EAR History of Any Multi-Drug Resistant Organisms: None Reported Past Surgical History: Appendectomy, Joint Replacement, Orthopedic Surgery Additional Past Surgical History / Comment(s): lt knee-torn meniscus repair. RT TKA. COLONOSCOPY Past Anesthesia/Blood Transfusion Reactions: No Reported Reaction Past Psychological History: No Psychological Hx Reported Smoking Status: Current every day smoker Past Alcohol Use History: Occasional Past Drug Use History: None Reported - Past Family History Mother Family Medical History: No Reported History Medications and Allergies Home Medications Medication Instructions Recorded Confirmed Type Aspirin [Adult Low Dose Aspirin EC] 81 mg PO DAILY 07/18/16 07/08/23 History Naproxen Sodium [Aleve] 220 mg PO DAILY 12/10/22 07/08/23 History hydroCHLOROthiazide [Hydrodiuril] 25 mg PO DAILY 12/10/22 07/08/23 History Mv-Min/Folic/K1/Lycopen/Lutein 1 tab PO DAILY 07/08/23 07/08/23 History [Centrum Silver Men Tablet] Allergies Allergy/AdvReac Type Severity Reaction Status Date / Time No Known Allergies Allergy Verified 07/08/23 23:05 Physical Exam Vitals: Vital Signs Temp Pulse Pulse Resp BP BP Pulse Ox 07/09/23 05:20 62 13 107/69 07/08/23 23:30 57 L 16 154/91 95 07/08/23 22:15 74 16 164/110 96 07/08/23 19:51 99.1 F 72 18 138/90 97 FiO2 07/09/23 05:20 99 07/08/23 23:30 07/08/23 22:15 07/08/23 19:51 Intake and Output 07/08/23 07/09/23 07/09/23 22:59 06:59 14:59 Other: Weight 117.934 kg Results 07/08/23 19:54 07/08/23 19:54 Cardiac Enzymes 07/08/23 07/08/23 07/08/23 Range/Units 19:54 19:54 23:48 AST 25 (17-59) U/L Troponin I <0.012 <0.012 (0.000-0.034) ng/mL 07/09/23 Range/Units 02:35 AST (17-59) U/L Troponin I <0.012 (0.000-0.034) ng/mL Coagulation 07/08/23 Range/Units 19:54 PT 10.3 (10.0-12.5) sec APTT 23.4 (22.0-30.0) sec CBC 07/08/23 Range/Units 19:54 WBC 9.3 (3.8-10.6) k/uL RBC 4.99 (4.30-5.90) m/uL Hgb 15.9 (13.0-17.5) gm/dL Hct 47.9 (39.0-53.0) % Plt Count 267 (150-450) k/uL Comprehensive Metabolic Panel 07/08/23 Range/Units 19:54 Sodium 139 (137-145) mmol/L Potassium 4.2 (3.5-5.1) mmol/L Chloride 110 H (98-107) mmol/L Carbon Dioxide 22 (22-30) mmol/L BUN 22 H (9-20) mg/dL Creatinine 1.07 (0.66-1.25) mg/dL Glucose 102 H (74-99) mg/dL Calcium 10.2 (8.4-10.2) mg/dL AST 25 (17-59) U/L ALT 27 (4-49) U/L Alkaline Phosphatase 75 (38-126) U/L Total Protein 7.1 (6.3-8.2) g/dL Albumin 4.1 (3.5-5.0) g/dL Current Medications Generic Name Dose Route Start Last Admin Trade Name Freq PRN Reason Stop Dose Admin Aspirin 325 mg 07/09/23 09:00 Aspirin 325 Mg Tab PO DAILY ANKUSH Nitroglycerin 0.4 mg 07/08/23 22:56 Nitroglycerin Sl Tabs 0.4 Mg Tab SUBLINGUAL Q5M PRN Chest Pain Nitroglycerin 1 inch 07/09/23 00:00 07/09/23 05:59 Nitroglycerin Oint 1 Inch/Gm Packet TOPICAL 1 inch Q6HR ON LICENSE OF [facility] Administration Intake and Output 07/08/23 07/09/23 07/09/23 22:59 06:59 14:59 Other: Weight 117.934 kg 07/08/23 19:54 07/08/23 19:54
--- NOTE | 2023-07-09 11:13 | P.HPIM ---
History of Present Illness Pleasant 60-year-old male came in with complaints of left shoulder area pain along with some numbness in the left thumb pain radiates to the left arm pain is sharp in nature. Patient was admitted to [facility] although patient clinically difficult denying shortness of breath discussed with that denies lightheadedness or diaphoresis associated pain patient pain is nonproductive not associated with food. Chest x-ray did not show significant abnormality EKG did not show any acute ST-T wave changes. Troponins were negative patient was eval by cardiology and patient is going for stress test. REVIEW OF SYSTEMS: CONSTITUTIONAL: No fever, no malaise, no fatigue. HEENT: No recent visual problems or hearing problems. Denied any sore throat. CARDIOVASCULAR: No orthopnea, PND, no palpitations, no syncope. PULMONARY: No shortness of breath, no cough, no hemoptysis. GASTROINTESTINAL: No diarrhea, no nausea, no vomiting, no abdominal pain. NEUROLOGICAL: No headaches, no weakness, no numbness. HEMATOLOGICAL: Denies any bleeding or petechiae. GENITOURINARY: Denies any burning micturition, frequency, or urgency. MUSCULOSKELETAL/RHEUMATOLOGICAL: Denies any joint pain, swelling, or any muscle pain. ENDOCRINE: Denies any polyuria or polydipsia. The rest of the 14-point review of systems is negative. PHYSICAL EXAMINATION: GENERAL: The patient is alert and oriented x3, not in any acute distress. Obese HEENT: Pupils are round and equally reacting to light. EOMI. No scleral icterus. No conjunctival pallor. Normocephalic, atraumatic. No pharyngeal erythema. No thyromegaly. CARDIOVASCULAR: S1 and S2 present. No murmurs, rubs, or gallops. PULMONARY: Chest is clear to auscultation, no wheezing or crackles. ABDOMEN: Soft, nontender, nondistended, normoactive bowel sounds. No palpable organomegaly. MUSCULOSKELETAL: No joint swelling or deformity. Patient has some pain with rotational movements of the left shoulder but no limitation of active or passive movements. EXTREMITIES: No cyanosis, clubbing, or pedal edema. NEUROLOGICAL: Gross neurological examination did not reveal any focal deficits. SKIN: No rashes. Assessment and plan -Left shoulder pain, chest pain atypical for coronary artery disease. Patient has musculoskeletal pain probably related to injury. Patient was asked to continue his naproxen increased frequency and Tylenol as needed will give Pepcid. Patient will undergo stress test with its negative patient will be discharged on these medications. -Hypertension: Controlled with hydrochlorothiazide -Obesity -Nicotine use: Counseling was provided If stress test is negative patient will be discharged today Past Medical History Past Medical History: Hypertension, Osteoarthritis (OA) Additional Past Medical History / Comment(s): RINGING IN RT EAR History of Any Multi-Drug Resistant Organisms: None Reported Past Surgical History: Appendectomy, Joint Replacement, Orthopedic Surgery Additional Past Surgical History / Comment(s): lt knee-torn meniscus repair. RT TKA. COLONOSCOPY Past Anesthesia/Blood Transfusion Reactions: No Reported Reaction Past Psychological History: No Psychological Hx Reported Smoking Status: Current every day smoker Past Alcohol Use History: Occasional Past Drug Use History: None Reported - Past Family History Mother Family Medical History: No Reported History Medications and Allergies Home Medications Medication Instructions Recorded Confirmed Type Aspirin [Adult Low Dose Aspirin EC] 81 mg PO DAILY 07/18/16 07/08/23 History Naproxen Sodium [Aleve] 220 mg PO DAILY 12/10/22 07/08/23 History hydroCHLOROthiazide [Hydrodiuril] 25 mg PO DAILY 12/10/22 07/08/23 History Mv-Min/Folic/K1/Lycopen/Lutein 1 tab PO DAILY 07/08/23 07/08/23 History [Centrum Silver Men Tablet] Allergies Allergy/AdvReac Type Severity Reaction Status Date / Time No Known Allergies Allergy Verified 07/08/23 23:05 Physical Exam Vitals: Vital Signs Temp Pulse Pulse Resp BP BP Pulse Ox 07/09/23 08:18 65 18 130/72 96 07/09/23 05:20 62 13 107/69 07/08/23 23:30 57 L 16 154/91 95 07/08/23 22:15 74 16 164/110 96 07/08/23 19:51 99.1 F 72 18 138/90 97 FiO2 07/09/23 08:18 07/09/23 05:20 99 07/08/23 23:30 07/08/23 22:15 07/08/23 19:51 Intake and Output 07/08/23 07/09/23 07/09/23 22:59 06:59 14:59 Other: Weight 117.934 kg Results CBC & Chem 7: 07/08/23 19:54 07/08/23 19:54 Labs: Abnormal Lab Results - Last 24 Hours (Table) 07/08/23 Range/Units 19:54 Chloride 110 H (98-107) mmol/L BUN 22 H (9-20) mg/dL Glucose 102 H (74-99) mg/dL
--- NOTE | 2023-07-09 12:47 | CA ---
Transthoracic Echo Report Name: Clay Ordonez Age: 62 Gender: M : 1960 Exam Date: 07/09/2023 09:57 Exam Location: [place] [facility] Ht (in): 67 Wt (lb): 260 Ordering Physician: Missy Daniel Attending/Referring Phys: [id number], María Cotton Grower Gabriela Burris, BELLA Procedure CPT: Indications: LVF Cardiac Hx: Technical Quality: Technically difficult study Contrast 1: Definity Total Dose (mL): 1 Contrast 2: Total Dose (mL): MEASUREMENTS (Male / Female) Normal Values 2D ECHO LV Diastolic Diameter PLAX 4.1 cm 4.2 - 5.9 / 3.9 - 5.3 cm LV Systolic Diameter PLAX 2.8 cm IVS Diastolic Thickness 1.6 cm 0.6 - 1.0 / 0.6 - 0.9 cm LVPW Diastolic Thickness 1.5 cm 0.6 - 1.0 / 0.6 - 0.9 cm LV Relative Wall Thickness 0.8 RV Internal Dim ED PLAX 3.5 cm LA Systolic Diameter LX 4.0 cm 3.0 - 4.0 / 2.7 - 3.8 cm LV Diastolic Volume MOD BP 62.3 cm??? 67 - 155 / 56 - 104 cm??? LV Systolic Volume MOD BP 20.6 cm??? - 58 / 19 - 49 cm??? LV Ejection Fraction MOD BP 66.9 % >= 55 % LV Cardiac Index MOD BP 965.4 cm???/min???m??? LV Diastolic Volume MOD 4C 48.5 cm??? LV Systolic Volume MOD 4C 16.1 cm??? LV Ejection Fraction MOD 4C 66.9 % LV Cardiac Index MOD 4C 751.5 cm???/min???m??? LV Diastolic Length 4C 7.7 cm LV Systolic Length 4C 6.2 cm LV Diastolic Volume MOD 2C 75.9 cm??? LV Systolic Volume MOD 2C 26.4 cm??? LV Ejection Fraction MOD 2C 65.2 % LV Cardiac Index MOD 2C 1146.2 cm???/min???m??? LV Diastolic Length 2C 8.2 cm LV Systolic Length 2C 6.5 cm LA Volume 61.1 cm??? 18 - 58 / 22 - 52 cm??? LA Volume Index 25.3 cm???/m??? 16 - 28 cm???/m??? M-MODE Aortic Root Diameter MM 3.5 cm AV Cusp Separation MM 2.4 cm DOPPLER AV Peak Velocity 141.3 cm/s AV Peak Gradient 8.0 mmHg MV Area PHT 3.1 cm??? Mitral E Point Velocity 64.7 cm/s Mitral A Point Velocity 70.8 cm/s Mitral E to A Ratio 0.9 MV Deceleration Time 241.3 ms FINDINGS Left Ventricle Left ventricular ejection fraction is estimated at 55-60 %. Left ventricular cavity size normal. Normal left ventricular systolic function with no obvious regional wall motion abnormalities. Moderately increased left ventricular wall thickness. Right Ventricle Mild right ventricular dilatation. Unable to estimate the right ventricular systolic pressure. Right Atrium Right atrium not well visualized. Left Atrium Mildly increased left atrial volume. Mitral Valve Structurally normal mitral valve. No mitral stenosis, or prolapse.mild mitral regurgitation. Aortic Valve Aortic valve not well visualized. No aortic valve stenosis or regurgitation. Tricuspid Valve Structurally normal tricuspid valve. No tricuspid regurgitation. Pulmonic Valve Pulmonic valve not well visualized. No pulmonic regurgitation. Pericardium No pericardial effusion. Aorta Normal size aortic root and proximal ascending aorta. CONCLUSIONS Technically difficult study. Definity ECHO contrast used for improved visualization of the endocardial borders (inadequate visualization of two or more contiguous segments). Normal left ventricular size and systolic function Very limited Doppler study with mild mitral regurgitation Previewed by: Dr. Verito Sam MD (Electronically Signed) Final Date: 09 July 2023 12:46
--- NOTE | 2023-07-09 13:00 | CA ---
Stress Echo Report Clay Ordonez Age: 62 Gender: M : 1960 Exam Date: 07/09/2023 11:37 Exam Location: [place] [facility] Ht (in): 67 Wt (lb): 260 Ordering Physician: Missy Daniel Referring Physician: [id number] Cpc: Michelle De Souza RDCS Technologist Procedure CPT: Indication: Chest Pain ICD-9 Codes: Rhythm: Patient History: Chest pain, hypertension Cardiac Medications: Medications in past 24 hours: Contrast: Definity Stress Results Protocol: Denny Total dose(mL): Exercise Duration (min:sec): 7:[address] Depression (mm): Angina Score: Sifuentes Score: METS: 8.9 Resting HR: 58 Resting BP: 139 / 57 Peak HR: 140 Peak BP: 200 / 48 Max Predicted HR: 158 89 % Max Predicted HR Target HR: 134 Double Product: [id number] Stress Summary: The patient's target heart rate was achieved BP Response: Normal Reason for Termination: Reached target heart rate or work-load, Maximal effort/unable to continue Cardiac Symptoms: Dyspnea, weezing ECG Analysis Resting ECG: Normal sinus rhythm, normal ECG Stress ECG: No abnormal ST/T wave changes with exercise Arrhythmia: None Echo Analysis Resting Echo: Normal resting echocardiogram. Peak Echo Analysis: Normal treadmill stress echocardiogram. MEASUREMENTS (Male/Female) Normal Values CONCLUSIONS 1. Average exercise tolerance with normal electrocardiographic response to exercise 2. Normal stress echocardiogram with no evidence of stress induced ischemia. Dr. Verito Sam MD (Electronically Signed) Final Date: 09 July 2023 12:59
== END 2023-07-09 13:11 | disposition home or self-care (01) ==
LOC: EC 19:48 → 6NMEDSUR 22:57
PROVIDERS: ADMIT Hospitalist; ATTEND Hospitalist
DX: R07.89 Other chest pain (principal); M25.512 Pain in left shoulder; R20.0 Anesthesia of skin; R60.0 Localized edema; M79.18 Myalgia, other site; I10 Essential (primary) hypertension; F17.200 Nicotine dependence, unspecified, uncomplicated; E66.01 Morbid (severe) obesity due to excess calories; Z68.41 Body mass index [BMI] 40.0-44.9, adult; Z71.6 Tobacco abuse counseling; M19.90 Unspecified osteoarthritis, unspecified site; Z79.82 Long term (current) use of aspirin; Z79.899 Other long term (current) drug therapy; Z82.49 Family history of ischemic heart disease and other diseases of the circulatory system
CPT/HCPCS: 99285; 36415; 93005 ×2; 93306; 93351; 80061; 80053; 83735; 84484 ×2; 85025; 85610; 85730; 71046; G0378 ×2; Q9957

== ENCOUNTER 2024-06-02 10:58 | Day surgery (SDC) | payer BC ==
[2024-06-01 09:54] VITALS: BMI 39.5
[~2024-06-02 10:58] MED LIST changes: +LIDOCAINE 1% (10MG/ML) FOR IV START INTRADERMA PRN; -Pre Op ABX Message 1 EACH MISC MISCELLANE ONE
[2024-06-02] MEDS: LACTATED RINGERS 1,000 ML IV SCH (12:10)
[2024-06-02] MEDS: IV FLUID CONTINUATION 1,000 ML IV ONE (12:10)
[2024-06-02 12:15] VITALS: TEMP 97.1
[2024-06-02] MEDS ORDERED: PROPOFOL 10 MG/ML 20 ML VIAL IV ONE (12:40)
--- NOTE | 2024-06-02 12:41 | P.GSHP ---
History of Present Illness H&P Date: 06/02/24 Chief Complaint: Colon cancer screening 63-year-old male here for colonoscopy. Patient's last colonoscopy 7 years ago. Had a small polyp at that time. No family history of colon cancer. No bowel complaints. Past Medical History Past Medical History: Osteoarthritis (OA) Additional Past Medical History / Comment(s): RINGING IN RT EAR History of Any Multi-Drug Resistant Organisms: None Reported Past Surgical History: Appendectomy, Joint Replacement, Orthopedic Surgery Additional Past Surgical History / Comment(s): lt knee-torn meniscus repair. RT TKA. COLONOSCOPY Past Anesthesia/Blood Transfusion Reactions: No Reported Reaction Additional Past Anesthesia/Blood Transfusion Reaction / Comment(s): no blood transfusion Smoking Status: Current every day smoker - Past Family History Mother Family Medical History: No Reported History Medications and Allergies Home Medications Medication Instructions Recorded Confirmed Type Aspirin [Adult Low Dose Aspirin EC] 81 mg PO DAILY 07/18/16 06/01/24 History hydroCHLOROthiazide [Hydrodiuril] 25 mg PO DAILY 12/10/22 06/02/24 History Mv-Min/Folic/K1/Lycopen/Lutein 1 tab PO DAILY 07/08/23 06/01/24 History [Centrum Silver Men Tablet] Allergies Allergy/AdvReac Type Severity Reaction Status Date / Time No Known Allergies Allergy Verified 06/01/24 09:48 Surgical - Exam Vital Signs Temp Pulse Resp BP Pulse Ox 97.1 F L 70 20 132/74 95 06/02/24 12:10 06/02/24 12:10 06/02/24 12:10 06/02/24 12:10 06/02/24 12:10 Physical exam: General: Well-developed, well-nourished HEENT: Normocephalic, sclerae nonicteric Abdomen: Nontender, nondistended Extremities: No edema Neuro: Alert and oriented Assessment and Plan (1) Colon cancer screening Narrative/Plan: Will proceed with colonoscopy at this time. Current Visit: Yes Status: Acute Code(s): Z12.11 - ENCOUNTER FOR SCREENING FOR MALIGNANT NEOPLASM OF COLON SNOMED Code(s): 149180766
--- NOTE | 2024-06-02 12:50 | P.PCN ---
Date of Procedure: 06/02/24 Procedure(s) Performed: PREOPERATIVE DIAGNOSIS: Colon cancer screening POSTOPERATIVE DIAGNOSIS: Normal exam PROCEDURE: Colonoscopy ANESTHESIA: MAC SURGEON: Rafael Gardner M.D. SPECIMENS: None ENDOSCOPIC PROCEDURE: The patient was placed on the endoscopy table in the left decubitus position. The Olympus colonoscope was inserted into the anus and passed under direct visualization to the base of the cecum. The appendiceal orifice was visualized. From that point the scope was slowly withdrawn inspecti ng all surfaces carefully. There were no neoplastic inflammatory or polypoid lesions throughout the cecum, ascending, transverse, descending, sigmoid and rectum. There was no visible diverticulosis noted. Digital rectal examination was normal. The patient was taken to the recovery room in stable condition per anesthesia guidelines. RECOMMENDATIONS: Resume diet. Repeat colonoscopy 7 years.
[2024-06-02 13:02] VITALS: RESP 16
[2024-06-02 13:11] VITALS: BP 125/74; PULSE 66
== END 2024-06-02 13:27 | disposition home or self-care (01) ==
LOC: ORWHC2ENDO 10:58
PROVIDERS: ATTEND Surgery
DX: Z12.11 Encounter for screening for malignant neoplasm of colon (principal); J44.9 Chronic obstructive pulmonary disease, unspecified; F17.200 Nicotine dependence, unspecified, uncomplicated; M19.90 Unspecified osteoarthritis, unspecified site; E66.01 Morbid (severe) obesity due to excess calories; Z68.41 Body mass index [BMI] 40.0-44.9, adult; Z90.49 Acquired absence of other specified parts of digestive tract; Z96.659 Presence of unspecified artificial knee joint; Z79.82 Long term (current) use of aspirin; Z79.899 Other long term (current) drug therapy